=== PATIENT | female | born 1975 | race Caucasian/White ===

== ENCOUNTER 2016-09-30 19:17 | Emergency (ER) | payer SELFPAY ==
[~2016-09-30] VITALS: Ht 170.2 cm; Wt 81.6 kg
[2016-09-30 19:22] VITALS: BP 119/82
--- NOTE | 2016-09-30 20:05 | NUR ---
called pt in wr, no reponse
--- NOTE | 2016-09-30 21:06 | NUR ---
called pt in wr, no reponse
== END 2016-09-30 21:07 | disposition left against medical advice (07) ==
LOC: ER 19:19
DX: Z53.21 Procedure and treatment not carried out due to patient leaving prior to being seen by health care provider (principal)
CPT/HCPCS: A4606; Z7610

== ENCOUNTER 2017-01-08 17:00 | Emergency (ER) | payer SELFPAY ==
[~2017-01-08] VITALS: Ht 170.2 cm; Wt 82.6 kg
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
--- NOTE | 2017-01-08 17:13 | NUR ---
DR BEVERLY AT BEDSIDE FOR EVAL.
[2017-01-08] MEDS ORDERED: HYDROCODONE/APAP 5/325MG 1 EACH TABLET ONE (17:22)
[2017-01-08] MEDS ORDERED: HYDROCODONE/APAP 5/325MG 1 EACH TABLET PO ONE (17:30)
--- NOTE | 2017-01-08 17:40 | NUR ---
PT STATES NO CHANCE OF HER BEING , WILLING TO SIGN WAIVER. RADIOLOGY MADE AWARE.
--- NOTE | 2017-01-08 17:53 | NUR ---
PT TO RADIOLOGY FOR L RIBS, THORACIC AND LUMBAR SPINE XRAY VIA GURNEY.
[2017-01-08 19:34] VITALS: BP 132/84
--- NOTE | 2017-01-08 19:34 | NUR ---
Patient discharged to home in stable condition. Written and verbal after care instructions given. Patient verbalizes understanding of instruction.
== END 2017-01-08 19:36 | disposition home or self-care (01) ==
LOC: ER 17:01
DX: S29.9XXA Unspecified injury of thorax, initial encounter (principal); F17.200 Nicotine dependence, unspecified, uncomplicated; Z88.5 Allergy status to narcotic agent; Y04.0XXA Assault by unarmed brawl or fight, initial encounter; Y92.89 Other specified places as the place of occurrence of the external cause; Y93.89 Activity, other specified; Y99.8 Other external cause status
CPT/HCPCS: 71100; 72074; 72100; 99284; A4606; Z7610

== ENCOUNTER 2018-01-16 13:23 | Emergency (ER) | payer OTHER ==
[~2018-01-16] VITALS: Ht 165.1 cm; Wt 102.1 kg
--- NOTE | 2018-01-16 13:53 | NUR ---
[id number]:possible etoh intoxicated.
[2018-01-16 17:12] VITALS: BP 130/80
--- NOTE | 2018-01-16 17:13 | NUR ---
Patient discharged to home in stable condition. Written and verbal after care instructions given. Patient verbalizes understanding of instruction. ambulatory with a steady gait.
--- NOTE | 2018-01-16 17:14 | NUR ---
Patient discharged to home in stable condition. Written and verbal after care instructions given. Patient verbalizes understanding of instruction.
== END 2018-01-16 17:14 | disposition home or self-care (01) ==
LOC: ER 13:25
DX: F10.129 Alcohol abuse with intoxication, unspecified (principal); F17.200 Nicotine dependence, unspecified, uncomplicated; Z88.6 Allergy status to analgesic agent; Y90.9 Presence of alcohol in blood, level not specified
CPT/HCPCS: 99283; A4606; Z7610

== ENCOUNTER 2018-06-18 22:06 | Inpatient (IN) | payer OTHER ==
[~2018-06-18] VITALS: Ht 152.4 cm; Wt 96.6 kg
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
[2018-06-18] MEDS ORDERED: ONDANSETRON HCL/PF 4 MG/2 ML VIAL IVP ONE (22:30)
[2018-06-18] MEDS ORDERED: MORPHINE SULFATE INJ 2 MG/ML DISP.SYRIN IV ONE (22:30)
[2018-06-18] MEDS ORDERED: IV NS 0.9% 1,000 ML BAG IV ONE (22:30)
[2018-06-18] MEDS ORDERED: VANCOMYCIN 1 GM in IV D5W 250 ML IV ONE (22:30)
[2018-06-18] MEDS ORDERED: PIPERACILLIN /TAZOBACTAM 3.375 G in IV D5W 50 ML IV ONE (22:30)
[2018-06-18] MEDS ORDERED: ONDANSETRON HCL/PF 4 MG/2 ML VIAL ONE (22:38)
[2018-06-18] MEDS ORDERED: VANCOMYCIN 1 GM VIAL ONE (22:38)
[2018-06-18] MEDS ORDERED: PIPERACILLIN /TAZOBACTAM 3.375 G VIAL IV ONE (22:38)
[2018-06-18] MEDS ORDERED: MORPHINE SULFATE INJ 4 MG/ML DISP.SYRIN ONE (22:39)
[2018-06-18 22:42] LABS: BASOPHILS # (AUTO) 0.2 /CMM (0.0-0.2); BASOPHILS % (AUTO) 1.4 % (0.0-2.0); EOSINOPHILS % (AUTO) 1.6 % (0.0-6.0); HEMATOCRIT 42 % (33-45); HEMOGLOBIN 13.9 g/dL (11.5-14.8); LYMPHOCYTES % (AUTO) 45.3 % (20.0-44.0); MEAN CORPUSCULAR HGB CONC 33 g/dl (31.0-36.0); MEAN CORPUSCULAR VOLUME 94 fL (82-100); MONOCYTES # (AUTO) 0.6 /CMM (0.1-1.30); MONOCYTES % (AUTO) 5.2 % (2.0-12.0); NEUTROPHILS # (AUTO) 5.2 /CMM (1.8-8.9); NEUTROPHILS % (AUTO) 46.5 % (43.0-81.0); PLATELET COUNT (AUTO) 297 /CMM (150-450); RED BLOOD CELL COUNT(AUTO) 4.44 MIL/uL (4.0-5.2); WHITE BLOOD COUNT (AUTO) 11.1 K/uL (4.3-11.0)
[2018-06-18 22:48] LABS: CREATININE 0.7 mg/dL (0.6-1.3); POTASSIUM 3.9 mmol/L (3.5-5.1)
[2018-06-18] MEDS ORDERED: IV NS 0.9% 500 ML BAG IV ONE (23:00)
--- NOTE | 2018-06-18 23:31 | NUR ---
REPORT GIVEN TO JANA ROSEN.
[2018-06-19] MEDS ORDERED: MAGNESIUM HYDROXIDE 30 ML UDC PO PRN
[2018-06-19] MEDS ORDERED: Z GUARD REMEDY 2 OZ OINT TP PRN
[2018-06-19] MEDS ORDERED: ONDANSETRON HCL/PF 4 MG/2 ML VIAL IVP PRN
[2018-06-19] MEDS ORDERED: MAG HYDROX/AL HYDROX/SIMETH 30 ML UDC PO PRN
[2018-06-19] MEDS ORDERED: ACETAMINOPHEN 325 MG TABLET PO PRN
--- NOTE | 2018-06-19 00:18 | NUR ---
FLUIDS INFUSING. WILL END ON FLOOR. NURSE AWARE.
[2018-06-19 00:20] VITALS: BP_SYST 125; BP_SYST 128; BP_DIAS 81; BP_DIAS 87
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
[2018-06-19] MEDS: HYDROCODONE/APAP 10/325MG 1 EA TABLET PO PRN ×2 (01:01→10:23)
[2018-06-19] MEDS: IV NS 0.9% 1,000 ML IV PRN (01:43)
--- NOTE | 2018-06-19 06:18 | NUR ---
304-2 MS/RN NOTES PATIENT ABLE TO SLEEP INTERMITENTLY, ALERT, ORIENTED, RESPIRATIONS EVEN AND UNLABORED, ON PAIN MANAGEMENT MONITOIRNG AND IV ANTIBIOTIC FOR RIGHT LEG WOUND INFECTION. CALL LIGHTS WITHIN REACH, BED LOCKED, WILL MONITOR.
[2018-06-19 06:26] LABS: BASOPHILS # (AUTO) 0.1 /CMM (0.0-0.2); BASOPHILS % (AUTO) 0.9 % (0.0-2.0); EOSINOPHILS % (AUTO) 1.9 % (0.0-6.0); HEMATOCRIT 37 % (33-45); HEMOGLOBIN 12.2 g/dL (11.5-14.8); LYMPHOCYTES # (AUTO) 3.3 /CMM (0.8-4.8); LYMPHOCYTES % (AUTO) 35.4 % (20.0-44.0); MEAN CORPUSCULAR HGB CONC 33 g/dl (31.0-36.0); MEAN CORPUSCULAR VOLUME 95 fL (82-100); MONOCYTES # (AUTO) 0.6 /CMM (0.1-1.30); MONOCYTES % (AUTO) 6.3 % (2.0-12.0); NEUTROPHILS # (AUTO) 5.2 /CMM (1.8-8.9); NEUTROPHILS % (AUTO) 55.5 % (43.0-81.0); PLATELET COUNT (AUTO) 232 /CMM (150-450); RED BLOOD CELL COUNT(AUTO) 3.95 MIL/uL (4.0-5.2); WHITE BLOOD COUNT (AUTO) 9.4 K/uL (4.3-11.0)
[2018-06-19 06:47] LABS: CALCIUM, SERUM 7.5 mg/dL (8.5-10.1); CREATININE 0.6 mg/dL (0.6-1.3); MAGNESIUM 1.6 mg/dL (1.8-2.4); PHOSPHORUS 3.7 mg/dL (2.5-4.9); POTASSIUM 3.7 mmol/L (3.5-5.1)
[2018-06-19 06:50] LABS: THYROID STIMULATING HORMONE 3.134 uIU/mL (0.358-3.74)
--- NOTE | 2018-06-19 07:36 | NUR ---
MS RN NOTES RECEIVED PATIENT AWAKE IN BED WITH NO DISTRESS NOTED. NO C/O PAIN OR DISCOMFORT. PERIPHERAL LINE INTACT AND PATENT. BED IN LOW LOCK SETTING. ALL BELONGINGS NEAR BEDSIDE. CALL LIGHT WITHIN REACH. WILL CONTINUE TO MONITOR.
[2018-06-19 08:00] VITALS: BP 143/69
[2018-06-19] MEDS: NICOTINE PATCH (14MG) 14 MG PATCH.TD24 TD SCH (08:47)
[2018-06-19] MEDS: PANTOPRAZOLE 40 MG TABLET.DR PO SCH (08:47)
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
[2018-06-19] MEDS ORDERED: IBUP-1955 PO (11:32)
[2018-06-19] MEDS ORDERED: SULF1TAB48 PO (11:32)
[2018-06-19] MEDS ORDERED: CEPH-570 PO (11:32)
--- NOTE | 2018-06-19 11:46 | NUR ---
Social service consult requested by Dr. Rojas for homelessness. Pt. is a 42 year old female who was admitted to [facility] for Right leg wound. SW met with pt. bedside. Pt's Brian is sitting in the room. Pt. is alert and oriented x 4. Pt. was sitting upright on her bed. Pt. states she and her have been homeless for the past 3 years. They recently received their [address] voucher and have an appointment on Tuesday to see an apartment in [facility] on [address]. Pt. and her have been currently living in a tent on [address]. Pt. denies drug use. Pt. smokes marijuana every other day. Pt. states she drinks wine occasionally. Pt. has no history of psychiatric illnesses and denies any suicidal/homicidal ideations at this time. Pt. has ACCESS transportation and will use that at time of discharge. No other social service needs are requested at this time. SW is available, if needed.
[2018-06-19] MEDS ORDERED: LIDOCAINE HCL/PF 1% 30 ML SDV IJ ONE (12:00)
[2018-06-19] MEDS ORDERED: MAGNESIUM OXIDE 400 MG TABLET PO ONE (12:00)
[2018-06-19] MEDS: HYDROCODONE/APAP 5/325MG 1 EACH TABLET PO PRN (13:53)
[2018-06-19 16:00] VITALS: BP 143/94
--- NOTE | 2018-06-19 19:02 | NUR ---
MS RN NOTES PATIENT IN BED RESTING NO SOB OR ACUTE DISTRESS NOTED. WITH PERIPHERAL IV INTACT PATENT. PATIENT DENIES ANY PAIN. PATIENTS DISCHARGE CANCELLED DUE TO SCHEDULED DEBRIDEMENT ON 06/20/2018. ALL DUE MEDICATIONS ADMINISTERED. ALL NEEDS MET WILL ENDORSE TO PM SHIFT JOSSELYN.
--- NOTE | 2018-06-19 19:30 | NUR ---
received pt in bed awake and alert. breathing evenly. no sob. nad. elizabeth warm and dry, no c/o pain or discomfort , dressing on R treadwell CDI. on ongoing ivf hydration. needs attended. bed low locked. call light within reach, will cont to monitor.
[2018-06-19 20:00] VITALS: BP 149/82
[2018-06-19 20:53] LABS: APPEARANCE,URINE CLEAR (CLEAR); BILIRUBIN,URINE NEGATIVE (NEGATIVE); BLOOD, URINE NEGATIVE Ery/uL (NEGATIVE); COLOR,URINE YELLOW (YELLOW); KETONES,URINE NEGATIVE (NEGATIVE); LEUKOCYTE ESTERASE ,URINE TRACE (NEGATIVE); NITRITE, URINE NEGATIVE (NEGATIVE); PROTEIN,URINE NEGATIVE (NEGATIVE); UGLUCOSE NEGATIVE (NEGATIVE); UROBILINOGEN,URINE 0.2 EU/dL (0.2)
[2018-06-19 21:06] LABS: BACTERIA,URINE Few /HPF (None Seen); RBC,URINE NONE SEEN /HPF (0-2)
[2018-06-19 21:07] LABS: SQUAMOUS EPITHELIAL CELL,UR Moderate /HPF (None Seen)
--- NOTE | 2018-06-20 01:22 | NUR ---
SAMIRA TURNER ON THE FLOOR MADE AWARE THAT PT IS NOT IN ANY ATB (IV OR PO ). MAINTENANCE ASSISTANT STARTED THE PT ON PO ATB STARTING TMRW.
[2018-06-20 06:26] LABS: CALCIUM, SERUM 8.7 mg/dL (8.5-10.1); CREATININE 0.7 mg/dL (0.6-1.3); MAGNESIUM 1.7 mg/dL (1.8-2.4); POTASSIUM 3.7 mmol/L (3.5-5.1)
--- NOTE | 2018-06-20 06:35 | NUR ---
PT IN BED SLEEPING AROUSES EASILY. BREATHING EVENLY. NO SOB. NO ACUTE EVENT DURING THE NIGHT. NO C/O PAIN OR DISCOMFORT. PT REFUSED BED BATH OR DRESSING CHANGE,, NPO FOR SX TODAY. ON ONGOING IVF HYDRATION. IV SITE INTACT AND PATENT. NEEDS ATTENDED. BED LOW LOCKED.CALL LIGHT WITHIN REACH, WILL CONT TO MONITOR AND WILL ENDORSE TO ,AM SHIFT FOR JOSSELYN.
--- NOTE | 2018-06-20 07:30 | NUR ---
RN OPENING NOTES RECEIVED PT. PT STABLE AND RESTING IN BED. NO S/S OF RESP DISTRESS OR SOB. PT DOES NOT APPEAR TO BE IN PAIN. PT TO HAVE SURGICAL WOUND DEBRIDEMENT OF RLE WOUND IN AM, SCHEDULED IN OR. PT WAS UNABLE TO TOLERATE PROCEDURE BEDSIDE ON 06/19/18. SURGICAL CHECKLIST AND CONSENT COMPLETED AND PLACED IN CHART. SAFETY MEASURES IN PLACE, CALL LIGHT WITHIN REACH. WILL CONTINUE TO MONITOR.
[2018-06-20 08:00] VITALS: BP 158/92
[2018-06-20] MEDS ORDERED: BUPIVACAINE 0.5 % PF 150 MG/30 ML VIAL ONE (08:21)
[2018-06-20] MEDS ORDERED: LIDOCAINE HCL/PF 1% 30 ML SDV ONE (08:21)
[2018-06-20] MEDS ORDERED: BACITRACIN 50000 UNITS/VIAL ONE (08:29)
[2018-06-20] MEDS ORDERED: HYDROMORPHONE INJ 2 MG/ML DISP.SYRIN ONE (08:52)
[2018-06-20] MEDS: NICOTINE PATCH (14MG) 14 MG PATCH.TD24 TD SCH (09:00)
[2018-06-20] MEDS ORDERED: FENTANYL PF 100MCG/2ML AMPUL ONE (09:18)
[2018-06-20] MEDS: CEPHALEXIN MONOHYDRATE 500 MG CAPSULE PO SCH ×3 (10:25→16:47)
[2018-06-20] MEDS: SULFAMETH/TRIMETH 800/160 MG 1 UDTAB TABLET PO SCH ×2 (10:25→21:20)
[2018-06-20] MEDS: PANTOPRAZOLE 40 MG TABLET.DR PO SCH (10:25)
--- NOTE | 2018-06-20 10:30 | NUR ---
RN NOTES PT RETURNED FROM SX. VSS. NO S/S OF RESP DISTRESS OR SOB. POST SURGICAL ORDERS RECEIVED AND NOTED. DIET REINSTATED. WILL CONTINUE TO MONITOR.
[2018-06-20] MEDS: Magnesium 1GM/D5W 100ML PREMIX 100 ML IV SCH ×2 (11:39→12:27)
[2018-06-20] MEDS: HYDROCODONE/APAP 10/325MG 1 EA TABLET PO PRN ×2 (12:30→16:57)
[2018-06-20 16:00] VITALS: BP 153/98
--- NOTE | 2018-06-20 18:27 | NUR ---
RN CLOSING NOTES PT RESTING IN BED, NO S/S OF RESP DISTRESS OR SOB. NO C/O PAIN. ALL PT NEEDS ANTICIPATED AND MET. SAFETY MEASURES IN PLACE, CALL LIGHT WITHIN REACH. WILL ENDORSE TO COAL GASIFICATION TECHNICIAN FOR JOSSELYN.
--- NOTE | 2018-06-20 19:20 | NUR ---
MS RN OPENING NOTES RECEIVED PATIENT IN BED RESTING, NO SOB OR ACUTE DISTRESS NOTED. FAMILY AT BED SIDE. IV ACCESS TO RAC, INTACT PATENT, REFUSES IVF ORDERED, STATED SHE TAKES GOOD PO & DOES NOT NEED IVF. RIGHT MARIE WOUND DEBRIDEMENT DONE TODAY, DRESSING CLEAN & INTACT. WILL BE CHANGED BY WOUND NURSE OR SURGERY STAFF, PER AM RN REPORT. WBAT TO RIGHT EXTREMITY. PATIENT DENIES ANY PAIN AT THIS TIME. BED IN LOW LOCKED POSITION. CALL LIGHT WITHIN REACH. WILL CONTINUE TO MONITOR CLOSELY.
[2018-06-20 20:00] VITALS: BP 143/90
[2018-06-20] MEDS: HYDROCODONE/APAP 5/325MG 1 EACH TABLET PO PRN (21:21)
--- NOTE | 2018-06-20 21:21 | NUR ---
PRN NORCO GIVEN PATIENT VERBALIZED HAVING RIGHT MARIE PAIN 7/10, ASKED TO GET NORCO, PRN NORCO 5/325MG GIVEN ORDERED. WILL REASSESS FOR EFFECTIVENESS.
[2018-06-21 06:36] LABS: CALCIUM, SERUM 8.7 mg/dL (8.5-10.1); CREATININE 0.9 mg/dL (0.6-1.3); POTASSIUM 3.9 mmol/L (3.5-5.1)
--- NOTE | 2018-06-21 06:47 | NUR ---
MS RN CLOSING NOTES PT SLEPT WELL AT NIGHT. RESTING IN BED, NO S/S OF RESP DISTRESS OR SOB. NO C/O PAIN AT THIS TIME. NO ACUTE CHANGES NOTED. ALL PT NEEDS ANTICIPATED AND MET. SAFETY MEASURES IN PLACE, CALL LIGHT WITHIN REACH. WILL ENDORSE TO AM SHIFT FOR JOSSELYN.
[2018-06-21 08:00] VITALS: BP 140/83
--- NOTE | 2018-06-21 08:00 | NUR ---
RN NOTES RECEIVED PATIENT IN THE BED A/O X4, NO ACUTE RESPIRATORY DISTRESS, V/S STABLE, ADMINISTERED SCHEDULED MEDICATION. ENCOURAGED TO EXPRESS FEELINGS AND CONCERNS. PATIENT REFUSED IV INFUSION. PATIENT SELF CARE, AMBULATORY. CALL LIGHT WITHIN TO REACH, SAFETY PRECAUTION MAINTAINED ALL THE TIME. SAFETY PRECAUTION MAINTAINED ALL THE TIME.
[2018-06-21] MEDS: NICOTINE PATCH (14MG) 14 MG PATCH.TD24 TD SCH (09:00)
[2018-06-21] MEDS: CEPHALEXIN MONOHYDRATE 500 MG CAPSULE PO SCH ×3 (09:27→16:38)
[2018-06-21] MEDS: PANTOPRAZOLE 40 MG TABLET.DR PO SCH (09:27)
[2018-06-21] MEDS: SULFAMETH/TRIMETH 800/160 MG 1 UDTAB TABLET PO SCH (09:27)
[2018-06-21] MEDS: POVIDONE-IODINE OINT 28.4 GM TUBE TP SCH (09:31)
[2018-06-21] MEDS: DAKINS QUARTER STRENGTH (0.125%) 480 ML BOTTLE TOP SCH (09:31)
[2018-06-21] MEDS: HYDROCODONE/APAP 10/325MG 1 EA TABLET PO PRN ×3 (09:38→20:51)
--- NOTE | 2018-06-21 09:38 | NUR ---
rn notes administered narco 10/325 mg po prn for right lower leg pain 02/10 per patient request, v/s taken bp -140/83, p-80, encouraged to increase fluid intake. continued monitoring.
--- NOTE | 2018-06-21 13:05 | NUR ---
rn notes GET VERBAL ORDER X1 DILAUDID 1 MG/ML IV PUSH NOW, ORDER TAKEN AND CARRIED OUT. PICTURE TAKEN.
[2018-06-21] MEDS ORDERED: HYDROMORPHONE 1 MG/1 ML DISP.SYRIN IV STA (13:06)
--- NOTE | 2018-06-21 13:16 | NUR ---
RN NOTES ADMINISTERED DILAUDID 1 MG /ML IV PUSH X1 X1 PRESCRIBED. CONTINUED MONITORING.
[2018-06-21] MEDS ORDERED: FEE PK DOSING 1 MIN EA MC ONE (14:08)
[2018-06-21] MEDS ORDERED: VANCOMYCIN 1 GM in IV NS 0.9% 250 ML IV SCH (15:00)
[2018-06-21 16:00] VITALS: BP 134/90
[2018-06-21] MEDS: VANCOMYCIN 1 GM in IV D5W 250 ML IV SCH (16:15)
[2018-06-21] MEDS: IV NS 0.9% 1,000 ML IV PRN (16:34)
--- NOTE | 2018-06-21 16:38 | NUR ---
RN NOTES ADMINISTERED NARCO 10/325 MG PO PRN FOR RIGHT KNEE PAIN 02/10 PER PATIENT REQUEST, V/S STABLE, CONTINUED MONITORING.
[2018-06-21] MEDS: LACTOBACILLUS RHAMNOSUS GG 1 EACH CAP.SPRINK PO SCH (16:39)
--- NOTE | 2018-06-21 18:30 | NUR ---
RN NOTES PATIENT IN THE BED, SCHEDULED MEDICATION ADMINISTERED, INFUSING VANCOMYCIN AT RIGHT FA INTACT. MEDICATION WERE ADMINISTERED FOR PAIN EFFECTIVE. CALL LIGHT WITHIN TO REACH. SAFETY PRECAUTION MAINTAINED ALL THE TIME. NEXT TO THE BED. ENDORSED ONCOMING NURSE FOR PLAN OF CARE.
--- NOTE | 2018-06-21 19:20 | NUR ---
RN NOTES RECEIVED PT AWAKE OUT OF BED SITTING IN THE CHAIR, ON ROOM AIR AND TOLERATED WELL. PAIN AT TOLERABLE LEVEL AT THIS TIME. IV ACCESS PATENT AND INTACT WITH ONGOING VANCOMYCIN INFUSING WELL. PT IS AMBULATORY WITH STEADY GAIT, RIGHT LOWER LEG DRESSING INTACT. FALL PRECAUTION OBSERVED. PLAN OF CARE DISCUSSED WITH THE PT AND VERBALIZED UNDERSTANDING. WILL CONTINUE TO MONITOR PT.
[2018-06-21 20:00] VITALS: BP 139/81
[2018-06-21 22:00] VITALS: BP 139/81
[2018-06-22] MEDS: VANCOMYCIN 1 GM in IV D5W 250 ML IV SCH ×2 (03:01→15:00)
--- NOTE | 2018-06-22 07:08 | NUR ---
RNNOTES PT STABLE OVERNIGHT, VITAL SIGNS STABLE, AFEBRILE. KEPT PAIN AT TOLERABLE LEVEL. KEPT RIGHT LOWER LEG ELEVATED. ALL NEEDS ATTENDED. FALL PRECAUTION OBSERVED. ENDORSED TO MORNING RN FOR CONTINUITY OF CARE.
--- NOTE | 2018-06-22 07:23 | NUR ---
RN OPENING NOTES PT RECEIVED IN BED AT LOWEST AND LOCKED POSITION WITH SIDE RAILS UP X2, A/O X4, BREATHING EVEN AND UNLABORED ON RA, NO PAIN OR DISTRESS AT THIS TIME, IV PATENT AND INTACT, SAFETY PRECAUTIONS IN PLACE, CALL LIGHT WITHIN REACH, WILL MONITOR ACCORDINGLY
[2018-06-22 08:00] VITALS: BP 111/72
[2018-06-22] MEDS: PANTOPRAZOLE 40 MG TABLET.DR PO SCH (08:13)
[2018-06-22] MEDS: LACTOBACILLUS RHAMNOSUS GG 1 EACH CAP.SPRINK PO SCH (08:13)
[2018-06-22] MEDS: NICOTINE PATCH (14MG) 14 MG PATCH.TD24 TD SCH (08:15)
[2018-06-22] MEDS: DAKINS QUARTER STRENGTH (0.125%) 480 ML BOTTLE TOP SCH (08:16)
[2018-06-22] MEDS: POVIDONE-IODINE OINT 28.4 GM TUBE TP SCH (08:16)
--- NOTE | 2018-06-22 08:50 | NUR ---
RN NOTES [facility] WAS CALLED REGARDING WOUND VAC AND IT WAS BROUGHT UP AT THIS TIME
--- NOTE | 2018-06-22 09:44 | NUR ---
RN NOTES GOT A CALL FROM DONNA MONTANA REGARDING PT WOUND VAC, SHE STATED TO NOT PLACE THE WOUND VAC DUE TO PLAN FOR PT BEING DISCHARGED FOR SNF TODAY
[2018-06-22] MEDS: HYDROCODONE/APAP 10/325MG 1 EA TABLET PO PRN ×2 (09:50→15:34)
--- NOTE | 2018-06-22 10:48 | NUR ---
AREA COORDINATOR AREA COORDINATOR DISCUSSED WOUND VAC PLACEMENT WITH DPM, PATIENT SCHEDULED FOR POSSIBLE DISCHARGE TODAY TO SNF. NO WOUND VAC TO BE PLACED HERE. PER DPM, OK FOR NEGATIVE PRESSURE WOUND THERAPY TO BE STARTED/ARRANGED ONCE PATIENT GETS TO SNF. DISCUSSED WITH NURSING STAFF.
--- NOTE | 2018-06-22 15:37 | NUR ---
RN NOTE PT ACCIDENTALLY PULLED OUT IV WHILE CHANGING CLOTHES, I INFORMED HER THAT A NEW ONE WOULD NEED TO BE INSERTED ESPECIALLY SINCE WE NEED TO RUN THE VANCO FOR HER. SHE STILL REFUSED INSERTION AND REFUSED THE VANCO WELL. MESSAGE SENT TO HOSPITALIST JUAN MIGUEL DINH REGARDING SITUATION, AWAITING FURTHER ORDERS
--- NOTE | 2018-06-22 17:05 | NUR ---
DISCHARGE NOTES PT WAS DISCHARGED IN MEDICALLY STABLE CONDITION AT THIS TIME, ALL PAPERWORK WAS DISCUSSED WITH THE PATIENT, ALL DISCHARGE PAPERWORK AND BELONGING LIST WERE SIGNED, PHOTO OF WOUNDS WERE TAKEN AND PLACED IN THE CHART, IV AND ID BAND WERE REMOVED, ALL BELONGINGS WERE TAKEN, HOSPITALIST JUAN MIGUEL DINH HANDED THE PATIENT THE PRESCRIPTION AND COPIES WERE MADE. JUAN MIGUEL DINH ALSO DISCUSSED WITH THEM THE PLAN OF CARE. ALL NEEDS WERE ATTENDED TO, THEY WERE TAKING DOWN VIA WHEELCHAIR WHERE THEY AT THIS TIME
== END 2018-06-22 17:00 | disposition home or self-care (01) | DRG 364 ==
LOC: ER 22:07 → MED 23:44
PROVIDERS: ADMIT Registered Nurse; ATTEND Nurse Practitioner Acute Care
PROC: 0QBG0ZZ Excision of Right Tibia, Open Approach (ICD-10-PCS; principal; 2018-06-20 08:30)
DX: L03.115 Cellulitis of right lower limb (principal); E66.01 Morbid (severe) obesity due to excess calories; S81.811A Laceration without foreign body, right lower leg, initial encounter; W22.8XXA Striking against or struck by other objects, initial encounter; Y92.009 Unspecified place in unspecified non-institutional (private) residence as the place of occurrence of the external cause; I10 Essential (primary) hypertension; Z72.0 Tobacco use; Z68.41 Body mass index [BMI] 40.0-44.9, adult; Z59.0 Homelessness
CPT/HCPCS: 36415; 73590-TC; 80048-TC; 80061-TC; 80305; 81000-TC; 83605-TC; 83735-TC; 84100-TC; 84443-TC; 84703-TC; 85025-TC; 85652-TC; 85730-TC; 86140-TC; 87040-TC; 87070-TC; 87075-TC; 87081-TC; 87086-TC; A4217; A4606; A6209; A6402; A6403; A6407; G0378; J0690; J1100; J1170; J1885; J2270; J2405; J2543; J2704; J3010; J3370; J3475; J3490; J7030; J7040; J7050; J7060; Z7610

== ENCOUNTER 2018-09-29 21:14 | Emergency (ER) | payer OTHER ==
[~2018-09-29] VITALS: Ht 167.6 cm; Wt 81.6 kg
[~2018-09-29 21:14] MED LIST: CEPH-570 PO; IBUP-1955 PO; SULF1TAB48 PO
[2018-09-29 23:22] VITALS: BP 154/84
== END 2018-09-29 23:25 | disposition home or self-care (01) ==
LOC: ER 21:21
DX: T19.2XXA Foreign body in vulva and vagina, initial encounter (principal); I10 Essential (primary) hypertension; F17.200 Nicotine dependence, unspecified, uncomplicated; Z98.890 Other specified postprocedural states; Z79.899 Other long term (current) drug therapy; X58.XXXA Exposure to other specified factors, initial encounter; Y93.89 Activity, other specified; Y92.89 Other specified places as the place of occurrence of the external cause; Y99.8 Other external cause status
CPT/HCPCS: 99283; A6402

== ENCOUNTER 2019-01-02 15:31 | Emergency (ER) | payer OTHER ==
[~2019-01-02] VITALS: Ht 170.2 cm; Wt 82.6 kg
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
[2019-01-02] MEDS ORDERED: HYDROCODONE/APAP 5/325MG 1 EACH TABLET ONE (16:23)
[2019-01-02] MEDS ORDERED: HYDROCODONE/APAP 5/325MG 1 EACH TABLET PO ONE (16:30)
--- NOTE | 2019-01-02 16:34 | NUR ---
PATIENT WENT TO CT.
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
--- NOTE | 2019-01-02 19:08 | NUR ---
Patient discharged to home in stable condition. Written and verbal after care instructions given. Patient verbalizes understanding of instruction.
[2019-01-02 19:09] VITALS: BP 154/93
== END 2019-01-02 19:09 | disposition home or self-care (01) ==
LOC: ER 15:35
DX: S02.2XXA Fracture of nasal bones, initial encounter for closed fracture (principal); S00.83XA Contusion of other part of head, initial encounter; M79.632 Pain in left forearm; F17.200 Nicotine dependence, unspecified, uncomplicated; Z86.19 Personal history of other infectious and parasitic diseases; Y04.0XXA Assault by unarmed brawl or fight, initial encounter; Y93.89 Activity, other specified; Y92.89 Other specified places as the place of occurrence of the external cause; Y99.8 Other external cause status
CPT/HCPCS: 70450-TC; 70486-TC; 73090-TC; 73110

== ENCOUNTER 2019-01-25 20:05 | Emergency (ER) | payer OTHER ==
[~2019-01-25] VITALS: Ht 170.2 cm; Wt 81.2 kg
--- NOTE | 2019-01-25 20:12 | NUR ---
CALLED PT IN WAITING ROOM. NO RESPONSE. WILL FOLLOW UP.
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
[2019-01-25] MEDS ORDERED: IBUPROFEN 600 MG TABLET PO ONE ×2 (20:57→21:00)
[2019-01-25 21:42] VITALS: BP 139/71
== END 2019-01-25 21:43 | disposition home or self-care (01) ==
LOC: ER 20:14
DX: S80.02XA Contusion of left knee, initial encounter (principal); F17.200 Nicotine dependence, unspecified, uncomplicated; Z86.19 Personal history of other infectious and parasitic diseases; V29.9XXA Motorcycle rider (driver) (passenger) injured in unspecified traffic accident, initial encounter; Y93.89 Activity, other specified; Y92.89 Other specified places as the place of occurrence of the external cause; Y99.8 Other external cause status
CPT/HCPCS: 73564-TC

== ENCOUNTER 2019-02-15 16:41 | Emergency (ER) | payer OTHER ==
[~2019-02-15] VITALS: Ht 170.2 cm; Wt 81.2 kg
[2019-02-15 16:45] VITALS: BP 144/95
--- NOTE | 2019-02-15 17:04 | NUR ---
Called No response
--- NOTE | 2019-02-15 19:19 | NUR ---
BROUGHT BY RADIOLOGY TO CT
[2019-02-15] MEDS ORDERED: HYDROCODONE/APAP 10/325MG 1 EA TABLET PO ONE (19:30)
[2019-02-15] MEDS ORDERED: HYDROCODONE/APAP 10/325MG 1 EA TABLET ONE (19:39)
== END 2019-02-15 21:36 | disposition home or self-care (01) ==
LOC: ER 16:43
DX: S50.11XA Contusion of right forearm, initial encounter (principal); F10.10 Alcohol abuse, uncomplicated; R51 Headache; M47.892 Other spondylosis, cervical region; F15.10 Other stimulant abuse, uncomplicated; F17.200 Nicotine dependence, unspecified, uncomplicated; Y90.9 Presence of alcohol in blood, level not specified; Z86.19 Personal history of other infectious and parasitic diseases; Y04.8XXA Assault by other bodily force, initial encounter; Y93.89 Activity, other specified; Y92.89 Other specified places as the place of occurrence of the external cause; Y99.8 Other external cause status
CPT/HCPCS: 70450-TC; 72125-TC; 73060-TC; 73090-TC

== ENCOUNTER 2019-04-10 10:36 | Emergency (ER) | payer OTHER ==
[~2019-04-10] VITALS: Ht 170.2 cm; Wt 87.1 kg
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
[2019-04-10] MEDS ORDERED: KETOROLAC TROMETHAMINE INJ 60 MG/2 ML VIAL IM ONE (11:30)
[2019-04-10] MEDS ORDERED: HYDROCODONE/APAP 10/325MG 1 EA TABLET PO ONE (11:30)
[2019-04-10] MEDS ORDERED: HYDROCODONE/APAP 10/325MG 1 EA TABLET ONE (11:37)
--- NOTE | 2019-04-10 11:43 | NUR ---
MARIAH MORENO TOOK PATIENT FOR XRAY
[2019-04-10] MEDS ORDERED: KETOROLAC TROMETHAMINE INJ 30 MG/ML VIAL ONE (12:09)
--- NOTE | 2019-04-10 13:10 | NUR ---
Patient discharged to home in stable condition. Written and verbal after care instructions given. Patient verbalizes understanding of instruction.
[2019-04-10 13:12] VITALS: BP 138/88
== END 2019-04-10 13:13 | disposition home or self-care (01) ==
LOC: ER 10:37
DX: S39.012A Strain of muscle, fascia and tendon of lower back, initial encounter (principal); S30.0XXA Contusion of lower back and pelvis, initial encounter; M51.36 Other intervertebral disc degeneration, lumbar region; M47.896 Other spondylosis, lumbar region; F10.10 Alcohol abuse, uncomplicated; F17.200 Nicotine dependence, unspecified, uncomplicated; F19.10 Other psychoactive substance abuse, uncomplicated; F15.10 Other stimulant abuse, uncomplicated; Y90.9 Presence of alcohol in blood, level not specified; Z86.19 Personal history of other infectious and parasitic diseases; V19.49XA Pedal cycle driver injured in collision with other motor vehicles in traffic accident, initial encounter; Y93.I9 Activity, other involving external motion; Y92.488 Other paved roadways as the place of occurrence of the external cause; Y99.8 Other external cause status
CPT/HCPCS: 72100; 72170; 96372; 99283; 99406; J1885

== ENCOUNTER 2019-07-28 17:21 | Emergency (ER) | payer OTHER ==
[~2019-07-28] VITALS: Ht 170.2 cm; Wt 87.1 kg
[2019-07-28 17:38] VITALS: BP 143/103
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
--- NOTE | 2019-07-28 17:44 | NUR ---
HOLLY TATUM AT BEDSIDE
[2019-07-28] MEDS ORDERED: ACETAMINOPHEN 325 MG TABLET ONE (17:57)
[2019-07-28] MEDS ORDERED: LORAZEPAM 0.5 MG TABLET ONE (17:57)
[2019-07-28] MEDS ORDERED: LORAZEPAM 1 MG TABLET PO ONE (18:00)
[2019-07-28] MEDS ORDERED: ACETAMINOPHEN 325 MG TABLET PO ONE (18:00)
--- NOTE | 2019-07-28 18:00 | NUR ---
TRANSPORTATION JOB TITLES AT BEDSIDE
== END 2019-07-28 21:55 | disposition home or self-care (01) ==
LOC: ER 17:21
DX: M54.5 Low back pain (principal); F10.10 Alcohol abuse, uncomplicated; R00.0 Tachycardia, unspecified; F17.200 Nicotine dependence, unspecified, uncomplicated; Y90.9 Presence of alcohol in blood, level not specified; Z86.19 Personal history of other infectious and parasitic diseases; Z79.899 Other long term (current) drug therapy; V19.9XXA Pedal cyclist (driver) (passenger) injured in unspecified traffic accident, initial encounter; Y93.I9 Activity, other involving external motion; Y92.89 Other specified places as the place of occurrence of the external cause; Y99.8 Other external cause status
CPT/HCPCS: 72110-TC; 72220-TC

== ENCOUNTER 2019-11-29 08:14 | Emergency (ER) | payer OTHER ==
[~2019-11-29] VITALS: Ht 172.7 cm; Wt 87.1 kg
--- NOTE | 2019-11-29 08:23 | NUR ---
BIBRA FOR TREMORS AND WEAKNESS - CALLED [address]; BS= [id number], ALCOHOLIC, DRUG USER - METHAMPETAMINE USER; LAST ETOH- 3 HOURS AGO, TO ER BED 10, HOOKED TO MONITOR, CHANGED TO HOSP GOWN, WARM BLANKET PROVIDED, PATIENT AAO x 4, BREATHING EVEN AND UNLABORED. AWAITING MD REYES.
--- NOTE | 2019-11-29 09:11 | NUR ---
DR VILLATORO AT BEDSIDE
[2019-11-29 09:41] LABS: BASOPHILS % (AUTO) 0.3 % (0.0-2.0); EOSINOPHILS % (AUTO) 1.4 % (0.0-6.0); HEMATOCRIT 38 % (33-45); HEMOGLOBIN 12.5 g/dL (11.5-14.8); LYMPHOCYTES # (AUTO) 2.6 /CMM (0.8-4.8); LYMPHOCYTES % (AUTO) 41.9 % (20.0-44.0); MEAN CORPUSCULAR HGB CONC 33 g/dl (31.0-36.0); MEAN CORPUSCULAR VOLUME 97 fL (82-100); MONOCYTES # (AUTO) 0.4 /CMM (0.1-1.30); MONOCYTES % (AUTO) 6.6 % (2.0-12.0); NEUTROPHILS # (AUTO) 3.1 /CMM (1.8-8.9); NEUTROPHILS % (AUTO) 49.8 % (43.0-81.0); PLATELET COUNT (AUTO) 99 /CMM (150-450); WHITE BLOOD COUNT (AUTO) 6.3 K/uL (4.3-11.0)
--- NOTE | 2019-11-29 09:42 | NUR ---
PATIENT PROVIDED W FOOD TRAY. TOLERATED PO WELL
[2019-11-29 09:48] LABS: CALCIUM, SERUM 8.1 mg/dL (8.5-10.1); CREATININE 0.8 mg/dL (0.6-1.3); POTASSIUM 3.6 mmol/L (3.5-5.1)
[2019-11-29 09:55] LABS: ALBUMIN 3.4 g/dL (3.4-5.0); BILIRUBIN,DIRECT 0.1 mg/dL (0.0-0.2); BILIRUBIN,TOTAL 0.2 mg/dL (0.2-1.0); SALICYLATE 5.9 mg/dL (2.8-20.0); TOTAL PROTEIN, SERUM 7.3 g/dL (6.4-8.2)
[2019-11-29 10:06] LABS: APPEARANCE,URINE Cloudy (CLEAR); BILIRUBIN,URINE Negative (NEGATIVE); BLOOD, URINE Trace-lysed Ery/uL (NEGATIVE); COLOR,URINE Yellow (YELLOW); KETONES,URINE Negative (NEGATIVE); LEUKOCYTE ESTERASE ,URINE Large (NEGATIVE); NITRITE, URINE Positive (NEGATIVE); PROTEIN,URINE Trace mg/dl (NEGATIVE); UGLUCOSE Negative (NEGATIVE); UROBILINOGEN,URINE 0.2 EU/dL (0.2)
[2019-11-29 10:17] LABS: BACTERIA,URINE 1+ /HPF (None Seen); WBC,URINE 21-50 /HPF (0-3)
--- NOTE | 2019-11-29 11:57 | NUR ---
PATIENT IN BED ASLEEP, EASILY AROUSABLE BY VOICE. HOOKED TO MONITOR. KEPT WARM AND COMFORTABLE. WILL CONTINUE TO MONITOR ACCORDINGLY.
[2019-11-29] MEDS ORDERED: CHLORDIAZEPOXIDE HCL 25 MG CAPSULE ONE (19:52)
[2019-11-29] MEDS: CHLORDIAZEPOXIDE HCL 25 MG CAPSULE PO ONE (19:59)
--- NOTE | 2019-11-29 20:08 | NUR ---
PATIENT IS AMBULATORY WITH STEADY GAIT. PATIENT'S BOYFRIEND WAS CALLED. PATIENT'S BOYFRIEND ORDERED [employer] FOR PATIENT.
[2019-11-29 20:09] VITALS: BP 132/77
--- NOTE | 2019-11-29 20:09 | NUR ---
Patient discharged to home in stable condition. Written and verbal after care instructions given. Patient verbalizes understanding of instruction.
--- NOTE | 2019-11-29 20:09 | NUR ---
Patient discharged to home in stable condition. Written and verbal after care instructions given. Patient verbalizes understanding of instruction.Pt ambulatory with a steady gait
== END 2019-11-29 20:10 | disposition home or self-care (01) ==
LOC: ER 08:19
DX: F10.129 Alcohol abuse with intoxication, unspecified (principal); F17.200 Nicotine dependence, unspecified, uncomplicated; Z59.0 Homelessness; Y90.8 Blood alcohol level of 240 mg/100 ml or more
CPT/HCPCS: 36415; 80048; 80076; 80305; 80307; 80329; 81001; 84703; 85025; 87086; 99283; G0480; 81000-TC; 87186-TC